=== PATIENT | female | born 1995 | race African-American/Black ===

== ENCOUNTER → 2018-09-07 | Emergency (ER) | payer MEDICAID | END | disposition left against medical advice (07) | LOC: ER 22:37 | DX: R10.9 Unspecified abdominal pain (principal); Z53.21 Procedure and treatment not carried out due to patient leaving prior to being seen by health care provider ==

== ENCOUNTER 2024-05-01 17:24 | Emergency (ER) | payer MEDICAID ==
[~2024-05-01] VITALS: Ht 182.9 cm; Wt 90.0 kg
[2024-05-01 17:50] VITALS: PULSE 109; RESP 11; O2SAT 95
[2024-05-01] MEDS: SODIUM CHLORIDE 0.9% 1,000 ML IV ONE (18:00)
[2024-05-01] MEDS: LORazepam 2MG/ML-1ML VIAL IV ONE (18:00)
[2024-05-01] MEDS: SODIUM CHLORIDE 0.9% 500 ML IVB ONE (18:00)
[2024-05-01 18:05] LABS: Basophils # (auto) 0 10 ^3/uL (0-0.2); Basophils % (auto) 0.5 % (0.0-2.0); Eosinophils # (auto) 0 10 ^3/uL (0-0.8); Eosinophils % (auto) 0.1 % (0.0-7.0); Hematocrit 47.1 % (41.0-53.0); Hemoglobin 15.7 g/dL (13.5-17.5); Lymphocytes # (auto) 2.2 10 ^3/uL (0.4-5.4); Lymphocytes % (auto) 23.5 % (10.0-50.0); Mean Corpuscular Hemoglobin 32.2 pg (28.0-32.0); Mean Corpuscular Hgb Conc. 33.4 g/dL (32.0-36.0); Mean Corpuscular Volume 96.5 fL (80.0-100.0); Monocytes # (auto) 1.3 10 ^3/uL (0-1.3); Monocytes % (auto) 13.4 % (0.0-12.0); Neutrophils # (auto) 5.9 10 ^3/uL (1.6-8.6); Neutrophils % (auto) 62.5 % (37.0-80.0); Nucleated Red Blood Cells % 0.1 %; Red Blood Cells 4.88 10^6/uL (4.5-5.90); Red Cell Distribution Width 13.3 % (11.8-14.3); White Blood Cell 9.5 10^3/uL (4.4-10.8)
[2024-05-01 18:23] LABS: Alanine Aminotransferase 48 U/L (7-40); Albumin 4.5 g/dL (3.2-4.8); Alkaline Phosphatase 43 U/L (46-116); Anion Gap 6 (5-15); Aspartate Aminotransferase 114 U/L (13-40); BUN/Creatinine Ratio 10.1 (10.0-20.0); Bilirubin, Total 0.6 mg/dL (0.2-1.0); Blood Urea Nitrogen 11 mg/dL (9-23); Calcium 9.4 mg/dL (8.5-10.1); Carbon Dioxide 27 mmol/L (20-30); Chloride 108 mmol/L (98-107); Glucose 128 mg/dL (74-106); Magnesium 2.4 mg/dL (1.6-2.6); Potassium 3.9 mmol/L (3.5-5.1); Sodium 141 mmol/L (136-145); Total Protein 7.5 g/dL (5.7-8.2)
[2024-05-01] MEDS: OLANZapine 5 MG TAB PO ONE (20:07)
[2024-05-02 08:00] VITALS: PULSE 76; RESP 12; O2SAT 96
[2024-05-02] MEDS: LORazepam 2MG/ML-1ML VIAL IV ONE (09:04)
[2024-05-02 09:05] VITALS: PULSE 91; RESP 18; O2SAT 97
[2024-05-02 09:54] LABS: Urine Bacteria None Seen /hpf (None Seen)
[2024-05-02 10:17] LABS: Urine Blood Negative /uL (Negative); Urine Clarity Clear (Clear); Urine Color Yellow (Yellow); Urine Mucus FEW (None Seen); Urine Protein, UAD TRACE (Negative); Urine Specific Gravity 1.034 (1.001-1.035); Urine Urobilinogen 2 mg/dL (Negative); Urine WBC 2 /hpf (0 - 3)
[2024-05-02 10:18] LABS: Amphetamine Screen, Urine Neg (NEGATIVE); Barbiturate Scree,Urine Neg (NEGATIVE); Benzodiazephine Screen, Urine Neg (NEGATIVE); Cocaine Screen, Urine Neg (NEGATIVE); Opiate Scree,Urine Neg (NEGATIVE)
[2024-05-02 10:19] LABS: Cannabinoid Screen, Urine Pos (NEGATIVE); Phencyclidine Screen, Urine Neg (NEGATIVE)
[2024-05-02] MEDS: LORazepam 2MG/ML-1ML VIAL IM ONE ×2 (12:54→12:56)
[2024-05-02] MEDS: diphenhdrAMINE HCL 50 MG/1 ML VL IM ONE (12:55)
[2024-05-02] MEDS: HALOPERIDOL LACTATE 5 MG/ML INJ VIAL IM ONE (12:57)
[2024-05-02] MEDS: HALOPERIDOL LACTATE 5 MG/ML INJ VIAL ONE (12:57)
[2024-05-02] MEDS: LORazepam 2MG/ML-1ML VIAL ONE ×2 (12:57→12:58)
[2024-05-02] MEDS: diphenhdrAMINE HCL 50 MG/1 ML VL ONE (12:58)
[2024-05-03] MEDS: LORazepam 2MG/ML-1ML VIAL IM ONE (06:12)
[2024-05-03] MEDS: diphenhdrAMINE HCL 50 MG/1 ML VL IM ONE (06:12)
[2024-05-03 08:04] VITALS: PULSE 88; RESP 16; O2SAT 96
[2024-05-03 19:35] VITALS: RESP 16; O2SAT 96
[2024-05-04] MEDS: LORazepam 2MG/ML-1ML VIAL IM ONE (10:55)
[2024-05-04 12:20] VITALS: BP 126/76; PULSE 103; RESP 18; TEMP 98.3; O2SAT 99
== END 2024-05-04 12:53 | disposition short-term general hospital (02) ==
LOC: EDUNIT# 17:24 → EDBD 17:24 → ER 17:29
DX: R41.82 Altered mental status, unspecified (principal); F20.9 Schizophrenia, unspecified; F17.210 Nicotine dependence, cigarettes, uncomplicated; F15.10 Other stimulant abuse, uncomplicated
CPT/HCPCS: 36415; 70450; 71045; 80053; 80307; 81001; 83735; 85025; 93005; 96361; 96372; 96374; 96376; 99285; J1200; J1630; J2060; J7030; J7040